=== PATIENT | male | born 1970 | race African-American/Black ===

== ENCOUNTER 2021-04-21 12:38 | Inpatient (IN) | payer OTHER ==
[~2021-04-21] VITALS: Ht 177.8 cm; Wt 72.1 kg
--- NOTE | ~2021-04-21 | O ---
[facility] [address] [place] [address] OPERATIVE REPORT Name: SYDNEY FROST Room #: 444-P ADM IN M.R.#: [id number] Admission: 04/21/21 Attend Phys: Ran Dietrich, Discharge: Date of : 66 Report #: [id number] THIS REPORT FOR: cc: FAM - No family physician/PCP FAM - No family physician/PCP Ran Dietrich MD ~ DOC #: [id number] Ran Dietrich MD DATE OF SERVICE: 04/22/2021 PREOPERATIVE DIAGNOSIS: Right inguinal hernia. POSTOPERATIVE DIAGNOSIS: Right inguinal hernia. OPERATION: Laparoscopic repair of right inguinal hernia with mesh. SURGEON: Ran Dietrich MD. ANESTHESIA: General. ESTIMATED BLOOD LOSS: Minimal. SPECIMENS: None. DESCRIPTION OF PROCEDURE: After informed consent was obtained, the patient was brought to the operating room and placed supine. SCDs were placed and working, preoperative antibiotics were administered, general anesthesia was induced. The abdomen was prepped and draped in the usual sterile fashion after a Cristobal catheter was placed. A 10 mm incision was made above the umbilicus. Fascia was incised and a trocar was placed. Pneumoperitoneum was established. Left and right lower quadrant 5 mm trocars were placed under direct vision. The patient was placed in the Trendelenburg position. The peritoneum at the right ASIS was scored. Peritoneum was then incised and reflected inferiorly. He had a direct inguinal hernia and this involved the appendix. This was somewhat scarred in the hernia sac due to the inflammation. I was able to reduce it completely. There was a small hernia defect. The cord structures were fully identified and protected. A large Bard 3DMax light mesh was inserted. It was tacked to Nico's ligament with 2 absorbable tacks. The peritoneum was then reapproximated with a tacker as well. The peritoneum was 100% covered. I then instilled the area with 10 mL of 0.5% Marcaine solution. Ports were removed under direct vision. The fascia was closed with a [id number]-fc-[id number] 0 Vicryl. Skin was closed with 4-0 Monocryl. Incisions were dressed with Steri-Strips. COMPLICATIONS: None. DISPOSITION: The patient was taken to recovery in satisfactory condition. [address] [address] OPERATIVE REPORT Name: SYDNEY FROST Room #: 444-P [facility] IN M.R.#: [id number] Admission: 04/21/21 Attend Phys: Ran Dietrich, Discharge: Date of : 66 Report #: [id number] MD ASHLEY Leon/PUN By: [id number] Ran Dietrich MD /nt
[2021-04-21 12:44] VITALS: BP 112/47
[2021-04-21 13:04] LABS: URINE BILIRUBIN NEGATIVE (Negative); URINE BLOOD NEGATIVE (Negative); URINE CLARITY CLEAR; URINE COLOR YELLOW; URINE GLUCOSE-RANDOM* NEGATIVE (Negative); URINE KETONES NEGATIVE (Negative); URINE LEUKOCYTES-REFLEX NEGATIVE (Negative); URINE NITRITE-REFLEX NEGATIVE (Negative); URINE PROTEIN (DIPSTICK) NEGATIVE (Negative); URINE UROBILINOGEN 0.2 E.U./dl (0.2-1.0)
[2021-04-21 14:04] LABS: ABSOLUTE NEUTROPHILS 6.8 thou/uL (1.4-8.2); BASOPHILS 0.9 % (0.0-2.0); EOSINOPHILS 4.2 % (0.0-3.0); HEMATOCRIT 45.3 % (42.0-52.0); HEMOGLOBIN 14.6 gm/dL (14.0-18.0); MCH 29.1 pg (26.0-34.0); MCHC 32.3 g/dL (28.0-37.0); MCV 89.9 fL (80.0-100.0); MONOCYTES 9.8 % (1.0-8.0); PLATELET COUNT 267 thou/uL (150-400); POLYS 66.1 % (36.0-66.0); RBC 5.04 mil/uL (4.50-6.00); RDW 14.3 % (10.5-14.5); WBC 10.2 thou/uL (4.0-11.0)
[2021-04-21 14:19] LABS: CALCIUM 9.3 mg/dL (8.5-10.1); POTASSIUM 4.2 mmol/L (3.5-5.1)
[2021-04-21 14:25] LABS: ALBUMIN 4.2 g/dL (3.4-5.0); TOTAL BILIRUBIN 0.6 mg/dL (0.2-1.0)
--- NOTE | 2021-04-21 19:06 | NUR ---
REPORT GIVEN TO DARREN TORO AT THIS TIME
[2021-04-21 19:22] VITALS: BP 92/50
[2021-04-21 20:28] VITALS: BP 105/66
[2021-04-22 00:22] VITALS: BP 96/54
--- NOTE | 2021-04-22 05:19 | NUR ---
ASSUMED CARE PT FROM ER AROUND 2000HRS. PT IS AOX4 AND LETS NEEDS BE KNOWN. PT IS UP AD [place]. PT WAS ABLE TO ANSWER ALL ADMISSION RELATED QUESTIONS AND SIGN CONSENTS. ASSESSMENT CHARTED. PT REPORTED SOME ABD PAIN; PRNS PROVDED. PT IS NPO. PT WAS ABLE TO GET COMFORTABLE AND SLEEP PART OF THE SHIFT. VSS AND NO S/S OF ACUTE DISTRESS. WILL CONTINUE TO MONITOR.
[2021-04-22 07:55] VITALS: BP 110/69
--- NOTE | 2021-04-22 08:01 | NUR ---
ASSUMED PT CARE AROUND 0700. PT ALERT X ORIENTED X 4. ON ROOM AIR. NO C/O ABD PAIN OR NAUSEA AT THIS TIME. IV RT / SALINE LOCKED.LBM YESTERDAY.NPO SINCE MIDNIGHT FOR SURGERY. QUISK REPORT GIVEN TO JUANIS RN AT OR. PT LEFT FOR SURGERY AT 0800.
[2021-04-22] MEDS ORDERED: NORCO5 PO (10:24)
[2021-04-22 11:49] VITALS: BP 131/105
[2021-04-22 14:08] VITALS: BP 131/105
== END 2021-04-22 15:13 | disposition home or self-care (01) | DRG 352 ==
LOC: ER 12:38 → 4S 15:50 → EROBS 15:50 → 4S 19:25
PROVIDERS: Physician Assistant; ADMIT Surgery; ATTEND Surgery
PROC: 0YU54JZ Supplement Right Inguinal Region with Synthetic Substitute, Percutaneous Endoscopic Approach (ICD-10-PCS; principal; 2021-04-22)
DX: K40.30 Unilateral inguinal hernia, with obstruction, without gangrene, not specified as recurrent (principal); F17.210 Nicotine dependence, cigarettes, uncomplicated; F12.90 Cannabis use, unspecified, uncomplicated; Z20.822 Contact with and (suspected) exposure to COVID-19; Z72.89 Other problems related to lifestyle
CPT/HCPCS: 10195; 50010; 50101; 50411; 50455; 50507; 50555; 50848; 51489; 52265; 52266; 53307; 53314; 56525; 56526; 58574; 62110; 62900; 70005